=== PATIENT | male | born 1965 | race Caucasian/White ===

== ENCOUNTER 2020-09-12 17:40 | Emergency (ER) | payer BC ==
[2020-09-12 17:58] VITALS: BMI 33.5
[2020-09-12 19:55] VITALS: TEMP 97.7
[2020-09-12 19:57] LABS: BASO % 0.7 % (0-2.0); EOS % 1.2 % (0-4.5); HEMATOCRIT 45.2 % (35.4-49); LYMPH % 42.3 % (8-40); MCH 27.7 pg (25.7-33.7); MCHC 33.2 g/dl (32.0-35.9); MEAN CELL VOLUME 83.4 fl (80-96); MEAN PLT VOLUME 8.4 fl (7.5-11.1); MONO % 6.7 % (3.8-10.2); NEUT % 49.1 % (42.8-82.8); PLATELET COUNT 225 K/MM3 (134-434); RBC 5.42 M/mm3 (4.00-5.60); RDW 13.1 % (11.9-15.9); WHITE BLOOD COUNT 8.9 K/mm3 (4.0-10.0)
[2020-09-12 20:17] LABS: CHLORIDE 105 mmol/L (98-107); POTASSIUM 4.1 mmol/L (3.5-5.1); SODIUM 137 mmol/L (136-145)
[2020-09-12 20:19] LABS: CALCIUM 8.8 mg/dL (8.5-10.1)
[2020-09-12 20:20] LABS: ANION GAP 7 MMOL/L (8-16); BLOOD UREA NITROGEN 18.9 mg/dL (7-18); CO2 26 mmol/L (21-32); GLUCOSE,RANDOM 202 mg/dL (74-106); LIPASE 252 U/L (73-393); MAGNESIUM 1.8 mg/dL (1.8-2.4)
[2020-09-12 20:23] LABS: CREATININE 0.7 mg/dL (0.55-1.3); SGOT/AST 19 U/L (15-37); SGPT/ALT 27 U/L (13-61)
[2020-09-12 20:24] LABS: BILIRUBIN,TOTAL 0.5 mg/dL (0.2-1); TOT PROT 7.3 g/dl (6.4-8.2)
[2020-09-12 20:25] LABS: ALK PHOS 67 U/L (45-117)
[2020-09-12 21:50] VITALS: BP 134/80; PULSE 67
== END 2020-09-12 21:42 | disposition home or self-care (01) ==
LOC: JER 17:40
DX: R07.89 Other chest pain (principal); I20.8 Other forms of angina pectoris; R10.84 Generalized abdominal pain
CPT/HCPCS: 36415; 71046-TC-FY; 80053; 82550; 82553; 83690; 83735; 84484; 85025; 93005; 93010; 99285-25

== ENCOUNTER 2020-12-16 00:34 | Emergency (ER) | payer BC ==
[2020-12-16 01:18] VITALS: BP 151/90; PULSE 89; TEMP 98.9; BMI 26.4
== END 2020-12-16 02:20 | disposition home or self-care (01) ==
LOC: JER 00:34
DX: U07.1 COVID-19 (principal)
CPT/HCPCS: 99282-25

== ENCOUNTER 2022-07-18 16:12 | Inpatient (IN) | payer OTHER ==
[2022-07-18 16:51] VITALS: BMI 34.5
[2022-07-18] MEDS ORDERED: ACETAMINOPHEN 1000 MG/100 ML BAG IVPB ONE (18:12)
[2022-07-18] MEDS ORDERED: MAG HYDROX/AL HYDROX/SIMETH -MYLANTA- ORAL SUSPENSION PO ONE (18:35)
[2022-07-18] MEDS ORDERED: FAMOTIDINE 20 MG/50 ML IVPB 20 MG in PREMIX 50 IVPB ONE (18:35)
[2022-07-18] MEDS ORDERED: ONDANSETRON 4 MG/2 ML VIAL IVPUSH ONE (18:35)
[2022-07-18] MEDS ORDERED: MAG HYDROX/AL HYDROX/SIMETH 30 ML UNIT-DOSE CUP ONE (18:55)
[2022-07-18] MEDS ORDERED: ACETAMINOPHEN INJECTION 100 ML IVPB ONE (18:55)
[2022-07-18] MEDS ORDERED: ONDANSETRON 4 MG/2 ML VIAL ONE (18:55)
[2022-07-18] MEDS ORDERED: FAMOTIDINE 20 MG/50 ML IVPB 20 MG/50 ML MG IVPB ONE (18:55)
[2022-07-18 19:10] LABS: EPI CELLS 1 /uL (0-25.1); HYALINE CASTS 0 /uL (0-3.1); URINE APPEARANCE CLEAR; URINE BACTERIA 0 /uL (0-1359); URINE BILIRUBIN NEGATIVE (NEGATIVE); URINE COLOR YELLOW; URINE GLUCOSE (UA) 3+ (NEGATIVE); URINE KETONE NEGATIVE (NEGATIVE); URINE LEUK ESTERASE NEGATIVE (NEGATIVE); URINE NITRITE NEGATIVE (NEGATIVE); URINE PROTEIN TRACE (NEGATIVE); URINE RBC 14 /uL (0-23.9); URINE UROBILINOGEN 0.2 mg/dL (0.2-1.0); URINE WBC 2 /uL (0-25.8)
[2022-07-18 19:29] LABS: ALBUMIN 3.7 g/dl (3.4-5.0); BLOOD UREA NITROGEN 19.4 mg/dL (7-18); CALCIUM 9.1 mg/dL (8.5-10.1)
[2022-07-18 19:33] LABS: CREATININE 0.9 mg/dL (0.55-1.3)
[2022-07-18 19:35] LABS: BILIRUBIN,TOTAL 0.3 mg/dL (0.2-1); TOT PROT 7.1 g/dl (6.4-8.2)
[2022-07-18] MEDS ORDERED: SODIUM CHLORIDE 1,000 ML IV STA (19:43)
[2022-07-18 20:26] LABS: BASO % 0.6 % (0-2.0); EOS % 1.2 % (0-4.5); HEMATOCRIT 44.8 % (35.4-49); HEMOGLOBIN 14.6 GM/dL (11.7-16.9); LYMPH % 34.7 % (8-40); MCH 26.6 pg (25.7-33.7); MCHC 32.6 g/dl (32.0-35.9); MEAN CELL VOLUME 81.5 fl (80-96); MEAN PLT VOLUME 8.5 fl (7.5-11.1); MONO % 6.6 % (3.8-10.2); NEUT % 56.9 % (42.8-82.8); PLATELET COUNT 289 10^3/uL (134-434); RDW 12.8 % (11.9-15.9)
[2022-07-18] MEDS ORDERED: morphine CARPU-JECT 4 MG/1 ML DISP.SYRIN IVPUSH ONE (22:58)
[2022-07-18] MEDS ORDERED: morphine SULFATE 4 MG/ML VIAL ONE (23:13)
[2022-07-19] MEDS ORDERED: LACTATED RINGERS SOLUTION 1,000 ML/1,000 ML INFUS.BAG IV SCH (00:15)
[2022-07-19 01:50] VITALS: RESP 18
[2022-07-19] MEDS ORDERED: ACETAMINOPHEN 1000 MG/100 ML BAG IVPB PRN (02:22)
[2022-07-19 06:33] VITALS: BP 140/88; PULSE 80; TEMP 97.4
[2022-07-19] MEDS ORDERED: INSULIN SLIDING SCALE (NOVOLOG) 1 VIAL SQ SCH (07:00)
[2022-07-19 07:30] LABS: CALCIUM 8.9 mg/dL (8.5-10.1)
[2022-07-19 07:31] LABS: BLOOD UREA NITROGEN 16.4 mg/dL (7-18); MAGNESIUM 1.8 mg/dL (1.8-2.4)
[2022-07-19 07:33] LABS: PHOSPHOROUS 3.4 mg/dL (2.5-4.9)
[2022-07-19 07:34] LABS: CREATININE 0.7 mg/dL (0.55-1.3)
[2022-07-19 08:04] LABS: HEMATOCRIT 40.5 % (35.4-49); HEMOGLOBIN 13.7 GM/dL (11.7-16.9); MCH 27.6 pg (25.7-33.7); MCHC 33.9 g/dl (32.0-35.9); MEAN CELL VOLUME 81.5 fl (80-96); MEAN PLT VOLUME 8.2 fl (7.5-11.1); PLATELET COUNT 253 10^3/uL (134-434); RBC 4.97 M/mm3 (4.00-5.60); RDW 12.6 % (11.9-15.9); WHITE BLOOD COUNT 7.9 K/mm3 (4.0-10.0)
[2022-07-19] MEDS ORDERED: ENOXAPARIN NA (PORCINE) 40 MG/0.4 ML DISP.SYRIN SQ SCH (10:00)
[2022-07-19] MEDS ORDERED: PATIENT'S OWN MEDICATION (NON-FORMULARY) (Tadalafil [Tadalafil] 20 MG Tablet) PO SCH (10:00)
[2022-07-19] MEDS ORDERED: PANTOPRAZOLE 40 MG TABLET PO SCH (10:00)
[2022-07-19] MEDS ORDERED: ASPIRIN COATED 81 MG TABLET.EC PO SCH (10:00)
== END 2022-07-19 16:40 | disposition left against medical advice (07) | DRG 440 ==
LOC: JER 16:12 → JERBED 23:13
PROVIDERS: ADMIT Internal Medicine; ATTEND Internal Medicine
DX: K85.90 Acute pancreatitis without necrosis or infection, unspecified (principal); E78.5 Hyperlipidemia, unspecified; E11.9 Type 2 diabetes mellitus without complications; I10 Essential (primary) hypertension; J44.9 Chronic obstructive pulmonary disease, unspecified
CPT/HCPCS: 36415; 71045-TC-FY; 74177-TC; 80048; 80053; 80061; 81003; 82962; 83605; 83690; 83735; 84100; 84443; 84478; 84484; 85025; 85027; 85379; 93005; 93010; 99285-25; C9803-CS; Q9967; U0003; U0005